=== PATIENT | female | born 1990 ===

== ENCOUNTER 2020-11-06 20:44 | Emergency (ER) | payer OTHER ==
[2020-11-06] MEDS ORDERED: DIAZEPAM 5 MG TABLET ONE (21:49)
[2020-11-06] MEDS ORDERED: HYDROCODONE/APAP 5/325 MG TAB ONE (21:49)
[2020-11-06] MEDS ORDERED: IBUPROFEN 400 MG TAB ONE (22:41)
--- NOTE | 2020-11-06 23:34 | ER ---
Nurse's Notes [facility] Name: Vianca Harrell Age: 30 yrs Sex: Female : 1990 Arrival Date: 11/06/2020 Time: 20:48 Bed 20 Private MD: Diagnosis: Other muscle spasm Presentation: 11/06 20:53 Chief complaint: Patient states: she was doing yoga at home her back started tightening bb up then she started having right sided chest pain and right shoulder pain approx 30 mins ago. Coronavirus screen: At this time, the client does not indicate any symptoms associated with coronavirus-19. Ebola Screen: No symptoms or risks identified at this time. Initial Sepsis Screen: Does the patient meet any 2 criteria? No. Patient's initial sepsis screen is negative. Does the patient have a suspected source of infection? No. Patient's initial sepsis screen is negative. Risk Assessment: Do you want to hurt yourself or someone else? Patient reports no desire to harm self or others. Onset of symptoms was November 06, 2020. 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 - Social history:: Smoking status: Patient denies any tobacco usage or history of. Screenin:00 Abuse screen: Denies threats or abuse. Nutritional screening: No deficits noted. jb4 Tuberculosis screening: No symptoms or risk factors identified. Fall Risk None identified. Assessment: 21:00 General: Appears in no apparent distress. uncomfortable, Behavior is calm, cooperative, jb4 appropriate for age. Pain: Complains of pain in neck Pain radiates to right arm Pain currently is 10 out of 10 on a pain scale. Quality of pain is described as stabbing, Pain began 1 hour ago. Neuro: Level of Consciousness is awake, alert, obeys commands, Oriented to person, place, time, situation. Cardiovascular: Patient's skin is warm and dry. Respiratory: Airway is patent Respiratory effort is even, unlabored, Respiratory pattern is regular, symmetrical. GI: No signs and/or symptoms were reported involving the gastrointestinal system. : No signs and/or symptoms were reported regarding the genitourinary system. EENT: No signs and/or symptoms were reported regarding the EENT system. Derm: Skin is intact, Skin is dry, Skin is normal, Skin temperature is warm. Musculoskeletal: Circulation, motion, and sensation intact. Range of motion: intact in all extremities. 22:15 Reassessment: Patient appears in no apparent distress at this time. Patient and/or jb4 family updated on plan of care and expected duration. Pain level reassessed. Patient is alert, oriented x 3, equal unlabored respirations, skin warm/dry/pink. Patient states feeling better. 23:30 Reassessment: Patient appears in no apparent distress at this time. Patient and/or jb4 family updated on plan of care and expected duration. Pain level reassessed. Patient is alert, oriented x 3, equal unlabored respirations, skin warm/dry/pink. Vital Signs: 20:53 BP 122 / 80; Pulse 83; Resp 18 S; Temp 98.3(O); Pulse Ox 98% on R/A; Weight 77.11 kg bb (R); Height 5 ft. 5 in. (165.10 cm) (R); Pain 5/10; 22:15 BP 91 / 53; Pulse 75; Resp 16; Pulse Ox 96% on R/A; jb4 23:30 BP 98 / 61; Pulse 67; Resp 16; Pulse Ox 97% on R/A; jb4 20:53 Body Mass Index 28.29 (77.11 kg, 165.10 cm) ED Course: 20:48 Patient arrived in ED. ag3 20:54 Triage completed. bb 20:55 Arm band placed on Patient placed in an exam room, on a stretcher, on pulse oximetry. bb 20:57 Gaston Sunshine PA is PHCP. [facility] 20:57 Tez Skaggs MD is Attending Physician. [facility] 21:00 Patient has correct armband on for positive identification. Bed in low position. Call jb4 light in reach. Side rails up X 1. Pulse ox on. NIBP on. 21:00 Patient maintains SpO2 saturation greater than 95% on room air. jb4 21:17 Jerry Hu, RN is Primary Nurse. jb4 21:57 Chest Single View XRAY In Process Unspecified. EDMS 23:30 No provider procedures requiring assistance completed. Patient did not have IV access jb4 during this emergency room visit. Administered Medications: 21:33 Not Given (Patient Refused): [place] (HYDROcodone-acetaminophen) 5 mg-325 mg 1 tabs PO jb4 once; RASS on ADMIN: Combtv4, Very Agttd3, Agttd2, Rstlss1, AlertClm0, Drwsy-1, Lt Sdtn-2, Mod Sdtn-3, Dp Sdtn-4, UnArsble-5 21:33 Drug: Valium (diazepam) 5 mg Route: PO; jb4 22:30 Follow up: Response: No adverse reaction; Marked relief of symptoms; Pain is decreased jb4 22:24 Drug: Ibuprofen 800 mg Route: PO; jb4 23:30 Follow up: Response: No adverse reaction; Marked relief of symptoms; Pain is decreased jb4 Outcome: 23:33 Discharge ordered by . alison 23:45 Discharged to home ambulatory. jb4 23:45 Condition: stable 23:45 Discharge instructions given to patient, Instructed on discharge instructions, follow up and referral plans. medication usage, Demonstrated understanding of instructions, follow-up care, medications, Prescriptions given X 1. 06/05 00:07 Patient left the ED. jb4 Signatures: Dispatcher [employer] EDMS Gaston Sunshine PA PA jmm Ballard, Brenda, RN RN bb Bryson, James, RN RN jb4 Magali Rankin ag3 Corrections: (The following items were deleted from the chart) 00:06 06/04 23:30 IV discontinued, intact, bleeding controlled, No redness/swelling at site. jb4 Pressure dressing applied, jb4
--- NOTE | 2020-11-06 23:34 | EDPHYS ---
Physician Documentation [facility] Name: Vianca Harrell Age: 30 yrs Sex: Female : 1990 Arrival Date: 11/06/2020 Time: 20:48 Bed 20 Private MD: ED Physician Tez Skaggs HPI: 11/06 21:07 This 30 yrs old Female presents to ER via Ambulatory with complaints of Chest Pain. jmm 21:07 The patient or guardian reports chest pain that is located primarily in the anterior [facility] chest wall, right. The pain radiates to the right shoulder, right back. This is a 30 year old female with no chronic medical conditions that presents to the ED with complaints of acute onset back pain which occurred while performing yoga. Pain radiates to the right side of the chest. . 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 - Social history:: Smoking status: Patient denies any tobacco usage or history of. ROS: 21:07 Constitutional: Negative for fever, chills, and weight loss. jmm 21:07 Cardiovascular: Positive for chest pain. 21:07 All other systems are negative. Exam: 21:07 Constitutional: This is a well developed, well nourished patient who is awake, alert, jmm and in no acute distress. Head/Face: atraumatic. Eyes: EOMI, no conjunctival erythema appreciated ENT: Moist Mucus Membranes Neck: Trachea midline, Supple 21:07 Cardiovascular: Regular rate and rhythm. No edema appreciated Respiratory: Normal respirations, no respiratory distress appreciated Abdomen/GI: Non distended, soft Back: Normal ROM Skin: General appearance color normal MS/ Extremity: Moves all extremities, no obvious deformities appreciated, no edema noted to the lower extremities Neuro: Awake and alert, normal gait Psych: Behavior is normal, Mood is normal, Patient is cooperative and pleasant 21:07 Chest/axilla: Palpation: tenderness, that is moderate, of the anterior aspect of right upper chest. 21:07 Back: right trapezius ttp. 22:53 ECG was reviewed by the Attending Physician. [facility] Vital Signs: 20:53 BP 122 / 80; Pulse 83; Resp 18 S; Temp 98.3(O); Pulse Ox 98% on R/A; Weight 77.11 kg bb (R); Height 5 ft. 5 in. (165.10 cm) (R); Pain 5/10; 22:15 BP 91 / 53; Pulse 75; Resp 16; Pulse Ox 96% on R/A; jb4 23:30 BP 98 / 61; Pulse 67; Resp 16; Pulse Ox 97% on R/A; jb4 20:53 Body Mass Index 28.29 (77.11 kg, 165.10 cm) bb MDM: 21:07 Patient medically screened. [facility] 23:32 Data reviewed: vital signs, nurses notes. Counseling: I had a detailed discussion with [facility] the patient and/or guardian regarding: the historical points, exam findings, and any diagnostic results supporting the discharge/admit diagnosis, radiology results, the need for outpatient follow up, to return to the emergency department if symptoms worsen or persist or if there are any questions or concerns that arise at home. ED course: Patient is alert and non toxic in appearance in the ED. Pain has decreased. Patient advised to follow up with pcp and otherwise given strict return precautions. patient understood and agree with the plan of care. . 11/06 21:12 Order name: Chest Single View XRAY [facility] 11/06 21:12 Order name: EKG - Nurse/Tech; Complete Time: 21:27 [facility] EC:53 Rate is 70 beats/min. Rhythm is regular. QRS [place] is Normal. LA interval is normal. QRS jmm interval is normal. QT interval is normal. No Q waves. T waves are Normal. No ST changes noted. Reviewed by me. Administered Medications: 21:33 Not Given (Patient Refused): [place] (HYDROcodone-acetaminophen) 5 mg-325 mg 1 tabs PO jb4 once; RASS on ADMIN: Combtv4, Very Agttd3, Agttd2, Rstlss1, AlertClm0, Drwsy-1, Lt Sdtn-2, Mod Sdtn-3, Dp Sdtn-4, UnArsble-5 21:33 Drug: Valium (diazepam) 5 mg Route: PO; jb4 22:30 Follow up: Response: No adverse reaction; Marked relief of symptoms; Pain is decreased jb4 22:24 Drug: Ibuprofen 800 mg Route: PO; jb4 23:30 Follow up: Response: No adverse reaction; Marked relief of symptoms; Pain is decreased jb4 Disposition: 11/06/20 23:33 Discharged to Home. Impression: Other muscle spasm. - Condition is Stable. - Discharge Instructions: Muscle Cramps and Spasms. - Prescriptions for orphenadrine citrate 100 mg Oral Tablet Sustained Release - take 1 tablet by ORAL route 2 times per day As needed; 20 tablet. - Medication Reconciliation Form, Thank You Letter, Antibiotic Education, Prescription Opioid Use form. - Follow up: Private Physician; When: 2 - 3 days; Reason: Recheck today's complaints, Continuance of care, Re-evaluation by your physician. Signatures: Dispatcher [employer] EDMS Gaston Sunshine PA PA jmm Ballard, Brenda, RN RN Jerry Butler RN RN jb4 Corrections: (The following items were deleted from the chart) 11/07 00:07 06/04 23:33 11/06/2020 23:33 Discharged to Home. Impression: Other muscle spasm. jb4 Condition is Stable. Forms are Medication Reconciliation Form, Thank You Letter, Antibiotic Education, Prescription Opioid Use. Follow up: Private Physician; When: 2 - 3 days; Reason: Recheck today's complaints, Continuance of care, Re-evaluation by your physician. alison
[2020-11-07] MEDS ORDERED: METOPROLOL TARTRATE 5 MG/5 ML INJ IV ONE (00:05)
[2020-11-07] MEDS ORDERED: NA CHLORIDE 0.9% 1,000 ML ONE (00:06)
[2020-11-07 00:25] VITALS: TEMP 98.3
[2020-11-07 00:28] VITALS: BP 98/61; O2SAT 97
--- NOTE | 2020-11-07 18:35 | RAD REPORT ---
EXAM DESCRIPTION: Chest Single View 11/06/2020 10:07 PM CDT CLINICAL HISTORY: 30 years, Female, chest pain, send to [facility] COMPARISON: None. FINDINGS: Single view of the chest was obtained portable. No prior films are available for compariso n. The cardiomediastinal silhouette demonstrate to be unremarkable. The heart is not enlarged. The thoracic aorta is unremarkable. Costophrenic angles are sharp. No areas of consolidation or masses are seen. External linear radiodensities within the region of the nipple regions correspond to pierci ng. The rest of the soft tissue and bony structures demonstrate to be unremarkable. IMPRESSION: NO ACUTE CARDIOPULMONARY DISEASE SEEN. Electronically signed by: Rosales Peters MD 11/06/2020 10:07 PM CDT Due to temporary technical issues with the PACS/Fluency reporting system, reports are being signed by the in house radiologists without review as a courtesy to insure prompt reporting. The interpreting radiologist is fully responsible for the content of the report.
== END 2020-11-07 00:07 | disposition home or self-care (01) ==
LOC: ER 20:44
DX: M62.838 Other muscle spasm (principal)
CPT/HCPCS: 71045; 93005; 99284